=== PATIENT | female | born 1975 | race Hispanic/Latino ===

== ENCOUNTER 2019-09-15 00:35 | Emergency (ER) | payer SELFPAY ==
[2019-09-15 00:43] VITALS: BP 134/86
== END 2019-09-15 01:22 | disposition left against medical advice (07) ==
LOC: ED 00:35
DX: R42 Dizziness and giddiness (principal); Z53.21 Procedure and treatment not carried out due to patient leaving prior to being seen by health care provider

== ENCOUNTER 2020-05-14 14:31 | Emergency (ER) | payer SELFPAY ==
[2020-05-14 14:45] VITALS: BP 143/85
--- NOTE | 2020-05-14 15:19 | Event Note ---
ED Screening Note ED Screening Note: states she put a tampon in two hours ago states she is unable to locate the tampon no dysuria no vaginal discharge states she is having vaginal bleeding no fever no v/d states she has lower abd pain and lower back pain This initial assessment/diagnostic orders/clinical plan/treatment(s) is/are subject to change based on patients health status, clinical progression and re- assessment by fellow clinical providers in the ED. Further treatment and workup at subsequent clinical providers discretion. Patient/guardian urged not to elope from the ED as their condition may be serious if not clinically assessed and managed. Initial orders include: labs, UA
--- NOTE | 2020-05-14 16:34 | Ultrasound Report ---
ULTRASOUND PELVIS INDICATION: pelvic pain, hx of "ovarian mass". TECHNIQUE: Transabdominal. Duplex Color Doppler used: Yes. COMPARISON: None available FINDINGS: Uterus: Present. Size: 7.0 x 4.3 x 4.5 cm. Endometrial complex: Normal measuring 3.5 mm. Mass lesions: None. Additional findings: None. Right Ovary --not visualized secondary to bowel gas Left Ovary--not visualized secondary bowel gas Urinary Bladder: Normal. Free Fluid: None. Additional Findings: None. IMPRESSION: 1. No acute sonographic abnormality of the pelvis. 2. Neither ovary visualized sonographically Signer Name: Stevenson Lima MD Signed: 05/14/2020 4:30 PM Workstation Name: [id number]
[2020-05-14 16:59] LABS: Blood Urea Nitrogen 11 mg/dL (7-17); Calcium 9.6 mg/dL (8.4-10.2); Hemolysis Index 3
[2020-05-14 17:00] LABS: BUN/Creatinine Ratio 18
[2020-05-14 17:02] LABS: Basophils # (Auto) 0.1 K/mm3 (0.0-0.1); Basophils % (Auto) 1.5 % (0.0-1.8); Eosinophils # (Auto) 0.1 K/mm3 (0.0-0.4); Eosinophils % (Auto) 0.9 % (0.0-4.3); Hematocrit 30.8 % (30.3-42.9); Hemoglobin 9.9 gm/dl (10.1-14.3); Lymphocytes # (Auto) 2.1 K/mm3 (1.2-5.4); Lymphocytes % (Auto) 31.9 % (13.4-35.0); Mean Corpuscular HGB Conc 32 % (30-34); Mean Corpuscular Volume 73 fl (79-97); Monocytes # (Auto) 0.6 K/mm3 (0.0-0.8); Monocytes % (Auto) 9.1 % (0.0-7.3); Platelet Count 444 K/mm3 (140-440); Red Blood Count 4.24 M/mm3 (3.65-5.03)
== END 2020-05-14 18:50 | disposition left against medical advice (07) ==
LOC: ED 14:31
DX: R10.9 Unspecified abdominal pain (principal); Z53.21 Procedure and treatment not carried out due to patient leaving prior to being seen by health care provider
CPT/HCPCS: 36415; 76856; 80048; 84703; 85025